=== PATIENT | female | born 1955 | race Two or more races ===

== ENCOUNTER → 2017-07-29 | Outpatient (CLI) | payer OTHER ==
--- NOTE | 2017-07-29 15:20 | Diagnostic Imaging Report ---
Indication: Chronic Liver disease Technique: Grayscale and duplex Doppler imaging of the abdomen performed. Comparison: None Findings: There is heterogeneity of the liver. There is mild nodularity of the liver surface. Liver is normal in size measuring about 13 cm. Spleen is enlarged measuring 13 to 14 cm. There is no ascites. Main portal vein is patent by Doppler. Proximal aorta is normal in caliber. CBD is prominent measuring 5 mm. Kidneys are grossly unremarkable. The gallbladder is contracted. There are gallstones present. Sonographic Romero's is negative. IMPRESSION: Suspicion of chronic liver disease with surface nodularity and heterogeneous echotexture. Mild splenomegaly. Cholelithiasis
== END | disposition home or self-care (01) ==
LOC: ULS 10:19
DX: K76.0 Fatty (change of) liver, not elsewhere classified (principal); K80.20 Calculus of gallbladder without cholecystitis without obstruction
CPT/HCPCS: 76700